=== PATIENT | female | born 1950 | race Caucasian/White ===

== ENCOUNTER 2017-02-15 16:18 | Outpatient (CLI) | payer MEDICARE, BC ==
[2017-02-15 18:22] LABS: #Eosinphils 0.2 thou/uL (0.0-0.7); #Lymphocytes 1.4 thou/uL (1.20-3.40); #Monocytes 0.5 thou/uL (0.11-0.59); #Neutrophils 5.1 thou/uL (1.40-6.50); %Basophils 0.4 % (0.0-1.0); %Eosinophils 2.9 % (0.0-10.0); %Lymphocytes 19.7 % (21.0-51.0); %Monocytes 6.4 % (0.0-10.0); Hematocrit 37.3 % (36.0-47.0); Red Blood Cell (RBC) Count 3.97 mill/uL (4.20-5.40); White Blood Cell (WBC) Count 7.3 thou/uL (4.8-10.8)
[2017-02-15 18:46] LABS: ALT (SGPT) 16 U/L (8-55); AST (SGOT) 15 U/L (5-34); Alkaline Phosphatase 54 U/L (40-150); Anion Gap 11 mmol/L (10-20); BUN (Urea Nitrogen) 22 mg/dL (9.8-20.1); Bilirubin, Total 0.2 mg/dL (0.2-1.2); Calc. Creatinine Clearance 0 mL/min (70-130); Calcium 9.6 mg/dL (7.8-10.44); Carbon Dioxide 25 mmol/L (23-31); Chloride 105 mmol/L (98-107); Estimated GFR-MDRD 72; Globulin 3.3 g/dL (2.4-3.5); Protein, Total 7.4 g/dL (6.0-8.3)
== END 2017-02-15 16:19 | disposition home or self-care (01) ==
LOC: LABBT 16:18
PROVIDERS: ATTEND Surgery
DX: Z01.812 Encounter for preprocedural laboratory examination (principal); K80.80 Other cholelithiasis without obstruction
CPT/HCPCS: 80053; 85025

== ENCOUNTER 2017-02-17 11:46 | Day surgery (SDC) | payer MEDICARE, BC ==
[2017-02-15 16:31] VITALS: BMI 34.5
[2017-02-17] MEDS ORDERED: Midazolam HCl 2 mg/2 ml Vial ONE (13:01)
[2017-02-17] MEDS ORDERED: Fentanyl 250 MCG/5 ML VIAL ONE (13:01)
[2017-02-17] MEDS ORDERED: Bupivacaine/Epinephrine 0.25% 30 ML VIAL ONE (13:02)
[2017-02-17] MEDS ORDERED: CEFAZOLIN/Water 2 GM/20 ML SYRINGE ONE (13:09)
[2017-02-17] MEDS ORDERED: Ondansetron HCl/PF 4 MG/2 ML Vial ONE (14:51)
[2017-02-17] MEDS ORDERED: Fentanyl 100 MCG/2 ML VIAL ONE (14:59)
--- NOTE | 2017-02-17 15:38 | PDOC.OP ---
Operative Note - Operative Note Operative Note: PROCEDURE: Laparoscopic cholecystectomy SURGEON: Elvia Dale M.D. DATE OF PROCEDURE: 02/17/2017 PREOPERATIVE DIAGNOSIS: Cholelithiasis and cholecystitis POSTOPERATIVE DIAGNOSIS: Cholelithiasis and cholecystitis HISTORY: Patient with gallstones and chronic cholecystitis. Laparoscopic cholecystectomy was recommended for symptomatically relief. Preoperative LFTs were normal. FINDINGS: White walled chronically distended gallbladder with chronic-appearing omental and duodenal adhesions. PROCEDURE IN DETAIL: After informed consent was obtained and appropriate preoperative antibiotics were administered, the patient was taken to the operating room and placed in the supine position and general endotracheal anesthesia was administered. The stomach was decompressed with an OG tube and the abdomen was prepped and draped in standard sterile fashion. Local anesthesia was infused to the skin and subcutaneous tissues at the umbilical level. A transverse skin incision was made. The fascia was elevated and a Veress needle was placed into the abdominal cavity without difficulty. Opening pressure was less than 5 and carbon dioxide gas easily insufflated to an intra- abdominal pressure of 15, which the patient tolerated well. The Veress needle was withdrawn and a Pierz port advanced under direct vision. The abdominal cavity was carefully examined. There was no evidence of Veress needle or of trocar injury. Local anesthesia was infused to the skin and subcutaneous tissues at the epigastric, right upper quadrant, and right lateral abdominal sites and trocars were placed under direct vision of the laparoscope. The fundus of the gallbladder was grasped and retracted superiorly. There are multiple adhesions to the omentum and to the duodenum which were carefully taken down through their avascular plane. There was no electrocautery used in the vicinity of the duodenum. The infundibulum was grasped and retracted laterally. The serosa was stripped inferiorly at the level of the neck of the gallbladder exposing the cystic duct and artery which were traced clearly to their insertion in the gallbladder. Critical view of safety was obtained and the cystic duct and artery were clipped and divided between clips. The gallbladder was then dissected free of the gallbladder bed using hook electrocautery. Prior to complete removal of the gallbladder from the gallbladder bed, the area of the cystic duct and artery stumps was examined. The clips were in good position completely across these structures and there was no bleeding and no leakage of bile. The gallbladder was then placed into an EndoCatch bag and drawn out through the epigastric incision after crushing and removing multiple stones. The epigastric trocar was replaced and the operative site easily irrigated to clear. There was no significant bleeding or spillage of bile. The epigastric trocar was removed and the fascia closed under direct laparoscopic vision with a 0 Vicryl suture on a GraNee needle in a figure-of- eight manner with excellent technical result. The right upper quadrant and right lateral abdominal trocars were removed and hemostasis verified. Carbon dioxide gas was allowed to desufflate through the umbilical trocar which was then removed. The skin incisions were closed with 4-0 subcuticular Monocryl sutures and Dermabond dressings were placed. The patient was extubated and taken to the recovery room in good condition. There were no complications. ESTIMATED BLOOD LOSS: Minimal. SPECIMEN : Gallbladder and contents.
[2017-02-17] MEDS ORDERED: Metoclopramide HCl 10 MG/2 ML VIAL ONE (15:49)
[2017-02-17] MEDS ORDERED: Glycopyrrolate 0.2 MG/ML 5 ML SYRINGE ONE (16:11)
[2017-02-17] MEDS ORDERED: Propofol 200 MG/20 ML VIAL ONE (16:11)
[2017-02-17] MEDS ORDERED: PHENYLEPHRINE-NS 100 MCG/ML 10 ML SYRINGE ONE (16:11)
[2017-02-17] MEDS ORDERED: Lidocaine 1% PF 5 ML VIAL ONE (16:11)
[2017-02-17] MEDS ORDERED: ePHEDrine/0.9% NaCl/PF SYRINGE 50 mg/10 ml ONE (16:11)
[2017-02-17] MEDS ORDERED: Dexamethasone 20 MG/5 ML VIAL ONE (16:11)
== END 2017-02-17 17:32 | disposition home or self-care (01) ==
LOC: SDC 11:46
PROVIDERS: ATTEND Surgery
PROC: 0FT44ZZ Resection of Gallbladder, Percutaneous Endoscopic Approach (ICD-10-PCS; principal; 2017-02-17)
DX: K80.10 Calculus of gallbladder with chronic cholecystitis without obstruction (principal); E11.9 Type 2 diabetes mellitus without complications; E07.9 Disorder of thyroid, unspecified; I10 Essential (primary) hypertension; E78.2 Mixed hyperlipidemia; Z88.2 Allergy status to sulfonamides; Z79.82 Long term (current) use of aspirin; Z79.84 Long term (current) use of oral hypoglycemic drugs; Z79.899 Other long term (current) drug therapy
CPT/HCPCS: 88304; 96374; J1100; J2001; J2250; J2405; J2704; J2765; J3010

== ENCOUNTER 2017-06-21 11:24 | Outpatient (CLI) | payer MEDICARE, BC | END 2017-06-21 11:25 | disposition home or self-care (01) | LOC: BICMAMMO 11:24 | PROVIDERS: ATTEND Family Medicine | DX: Z12.31 Encounter for screening mammogram for malignant neoplasm of breast (principal) | CPT/HCPCS: 77063; 77067 ==

== ENCOUNTER 2018-02-13 09:54 | Outpatient (CLI) | payer MEDICARE, BC ==
--- NOTE | 2018-02-13 12:43 | MRI ---
MRI LUMBAR SPINE WITHOUT CONTRAST: HISTORY: Low back pain. Pain radiates down both legs. COMPARISON: 09/15/2014 FINDINGS: Appropriate T1 marrow signal intensity of the lumbar vertebrae. Lumbar spine vertebral body height i s maintained. No fracture. 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 No s ignificant STIR hyperintensity to suggest edema from fracture. No MR evidence of ligamentous injury. Symmetric signal intensity of the psoas muscles. Appropriate signal intensity of the visualized arthur d organs. The conus medullaris terminates at the superior aspect of L1. T12-L1: Adequate disk hydration. No significant central canal stenosis. The neural foramina are pa tent. L1-L2: Adequate disk hydration. No significant central canal stenosis. The neural foramina are pat ent. L2-L3: Adequate disk hydration. No significant central canal stenosis. The neural foramina are pat ent. L3-L4: Adequate disk hydration. No significant central canal stenosis. The neural foramina are pat ent. L4-L5: Adequate disk hydration. No significant central canal stenosis. Mild ligamentum flavum thic kening and moderate facet hypertrophy. The neural foramina are patent bilaterally. L5-S1: Adequate disk hydration. No significant central canal stenosis. There is moderate bilateral facet hypertrophy. The neural foramina are patent. IMPRESSION: Posterior element hypertrophy, as described above. There is no significant central canal stenosis or neural foraminal narrowing. POS: [facility]
== END 2018-02-13 09:55 | disposition home or self-care (01) ==
LOC: SCSMRI 09:54
PROVIDERS: ATTEND Family Medicine
DX: M54.9 Dorsalgia, unspecified (principal); M53.9 Dorsopathy, unspecified; G95.9 Disease of spinal cord, unspecified
CPT/HCPCS: 72148

== ENCOUNTER 2018-10-02 11:47 | Outpatient (CLI) | payer MEDICARE, BC ==
--- NOTE | 2018-10-02 12:46 | MMO ---
Bilateral MAMMO Bilat Screen [facility]. CLINICAL HISTORY: Patient is 67 years old and is seen for screening. The patient has no family history of breast cancer. The patient has no personal history of cancer. The patient has a history of left Excisional Biopsy in 1978 - benign. VIEWS: The views performed were: bilateral craniocaudal with tomosynthesis and bilateral mediolateral oblique with tomosynthesis. FILMS COMPARED: The present examination has been compared to prior imaging studies performed at [facility] on 05/19/2016 and 06/21/2017, and at [facility] on 11/11/2009 and 10/25/2013. MAMMOGRAM FINDINGS: There are scattered fibroglandular densities. Finding 1: There are stable vascular calcifications seen in both breasts. There are no suspicious masses, calcifications or areas of architectural distortion. Finding 2: There is a stable focal asymmetry seen in the left breast. There are no suspicious masses, suspicious calcifications, or new areas of architectural distortion. IMPRESSION: THERE IS NO MAMMOGRAPHIC EVIDENCE OF MALIGNANCY. A ROUTINE FOLLOW-UP MAMMOGRAM IN 1 YEAR IS RECOMMENDED. THE RESULTS OF THIS EXAM WERE SENT TO THE PATIENT. ACR BI-RADS Category 2 - Benign finding MAMMOGRAPHY NOTE: 1. A negative mammogram report should not delay a biopsy if a dominant of clinically suspicious mass is present. 2. Approximately 10% to 15% of breast cancers are not detected by mammography. 3. Adenosis and dense breasts may obscure an underlying neoplasm. Reported by: ASHLEIGH STEVENSON MD Electonically Signed: [id number]
== END 2018-10-02 11:48 | disposition home or self-care (01) ==
LOC: BICMAMMO 11:47
PROVIDERS: ATTEND Family Medicine
DX: Z12.31 Encounter for screening mammogram for malignant neoplasm of breast (principal); Z91.89 Other specified personal risk factors, not elsewhere classified
CPT/HCPCS: 77063; 77067

== ENCOUNTER 2019-11-12 10:23 | Outpatient (CLI) | payer MEDICARE, BC ==
--- NOTE | 2019-11-12 11:35 | BD ---
EXAM: DEXA bone density examination HISTORY: 69-year-old postmenopausal female for screening COMPARISON: 09/15/2014 FINDINGS: L1--bone mineral density 0.816 g/sq cm; T score -1.6 L2--bone mineral density 0.871 g/sq cm; T score -1.4 L3--bone mineral density 0.976 g/sq cm; T score -1.0 L4--bone mineral density 0.881 g/sq cm; T score -1.6 Total L1-L4--bone mineral density 0.887 g/sq cm; T score -1.5 Left femoral neck--bone mineral density0.690; T score -1.4 Total proximal left femur--bone mineral density 0.952; T score 0.1 IMPRESSION: Osteopenia. This patient has a 10 year WHO fracture risk of a major osteoporotic fracture of 8.8% and of a hip fracture of 1.1%.
--- NOTE | 2019-11-12 12:19 | MMO ---
Bilateral MAMMO Bilat Screen [facility]. CLINICAL HISTORY: Patient is 69 years old and is seen for screening. The patient has no family history of breast cancer. The patient has no personal history of cancer. The patient has a history of left Excisional Biopsy in 1978 - benign. VIEWS: The views performed were: bilateral craniocaudal with tomosynthesis and bilateral mediolateral oblique with tomosynthesis. FILMS COMPARED: The present examination has been compared to prior imaging studies performed at [facility] on 05/19/2016, 06/21/2017 and 10/02/2018, and at [facility] on 10/25/2013. This study has been interpreted with the assistance of computer-aided detection. MAMMOGRAM FINDINGS: There are scattered fibroglandular densities. Finding 1: There are stable benign appearing calcifications seen in both breasts. Finding 2: There are stable benign appearing densities seen in both breasts. There are no suspicious masses, suspicious calcifications, or new areas of architectural distortion. IMPRESSION: THERE IS NO MAMMOGRAPHIC EVIDENCE OF MALIGNANCY. A ROUTINE FOLLOW-UP MAMMOGRAM IN 1 YEAR IS RECOMMENDED. THE RESULTS OF THIS EXAM WERE SENT TO THE PATIENT. ACR BI-RADS Category 2 - Benign finding MAMMOGRAPHY NOTE: 1. A negative mammogram report should not delay a biopsy if a dominant of clinically suspicious mass is present. 2. Approximately 10% to 15% of breast cancers are not detected by mammography. 3. Adenosis and dense breasts may obscure an underlying neoplasm. Reported by: RAMON NGUYEN MD Electonically Signed: [id number]
== END 2019-11-12 10:24 | disposition home or self-care (01) ==
LOC: BICMAMMO 10:23
PROVIDERS: ATTEND Family Medicine
DX: Z12.31 Encounter for screening mammogram for malignant neoplasm of breast (principal); M81.6 Localized osteoporosis [Lequesne]; M85.89 Other specified disorders of bone density and structure, multiple sites; Z91.89 Other specified personal risk factors, not elsewhere classified
CPT/HCPCS: 77063; 77067; 77080

== ENCOUNTER 2020-08-02 07:57 | Inpatient (IN) | payer MEDICARE, BC ==
[2020-08-02 10:21] VITALS: BMI 35.6
[2020-08-02] MEDS ORDERED: Ondansetron ODT 4 MG TAB PO PRN (13:27)
[2020-08-02] MEDS ORDERED: Ondansetron PF 4 MG/2 ML Vial IVP PRN (13:27)
[2020-08-02] MEDS ORDERED: Dextrose 50% Abboject 50 ML SYRINGE SLOW IVP PRN (13:27)
[2020-08-02] MEDS ORDERED: hydrALAZINE 20 MG/ML VIAL SLOW IVP PRN (13:27)
[2020-08-02] MEDS ORDERED: traMADol HCl 50 MG TAB PO PRN ×2 (13:27)
[2020-08-02] MEDS ORDERED: Dextrose 5% in Water 1,000 ML IV PRN (13:27)
[2020-08-02] MEDS ORDERED: HumaLOG 300 UNITS/3 ML VIAL SC PRN ×2 (13:27)
[2020-08-02] MEDS ORDERED: Ketorolac Tromethamine 30 MG/ML VIAL IVP SCH (13:30)
[2020-08-02] MEDS: Ibuprofen 800 MG TAB PO SCH ×2 (13:48→23:00)
[2020-08-02] MEDS: Acetaminophen 325 MG TAB PO SCH ×2 (17:07→23:00)
[2020-08-02] MEDS: Famotidine 20 MG TAB PO SCH (20:35)
[2020-08-02] MEDS: Cyclobenzaprine 10 MG TAB PO PRN (20:35)
[2020-08-02 20:39] LABS: SARS-CoV-2 PCR by NAA Not Detected (NotDetected)
[2020-08-02] MEDS: Sodium Chloride 0.9% 1,000 ML IV SCH (23:01)
[2020-08-03] MEDS: Ibuprofen 800 MG TAB PO SCH ×2 (05:08→15:15)
[2020-08-03] MEDS: Acetaminophen 325 MG TAB PO SCH ×4 (05:09→23:59)
[2020-08-03 05:18] LABS: #Eosinphils 0.2 thou/uL (0.0-0.7); #Lymphocytes 1.1 thou/uL (1.20-3.40); #Monocytes 0.5 thou/uL (0.11-0.59); #Neutrophils 3.4 thou/uL (1.40-6.50); %Basophils 0.4 % (0.0-1.0); %Eosinophils 3.9 % (0.0-10.0); %Lymphocytes 21.2 % (21.0-51.0); %Monocytes 9.8 % (0.0-10.0); %Neutrophils 64.7 % (42.0-75.0); Mean Corpuscular HGB CONC 34.3 g/dL (32.0-36.0); Mean Corpuscular Volume 87.7 fL (78.0-98.0); Mean Platelet Volume 7.8 fL (7.4-10.4); Platelet Count 181 thou/uL (130-400); RBC Distribution Width 12.4 % (11.5-14.5); Red Blood Cell (RBC) Count 3.66 mill/uL (4.20-5.40); White Blood Cell (WBC) Count 5.3 thou/uL (4.8-10.8)
[2020-08-03 05:35] LABS: Anion Gap 9 mmol/L (10-20); BUN (Urea Nitrogen) 21 mg/dL (9.8-20.1); Calc. Creatinine Clearance 90 mL/min (70-130); Calcium 8.9 mg/dL (7.8-10.44); Carbon Dioxide 27 mmol/L (23-31); Chloride 106 mmol/L (98-107); Glucose 103 mg/dL (80-115); Potassium 3.9 mmol/L (3.5-5.1); Sodium 138 mmol/L (136-145)
[2020-08-03] MEDS: Famotidine 20 MG TAB PO SCH ×2 (07:24→20:10)
[2020-08-03] MEDS ORDERED: CEFAZOLIN 2 GM in Premix Bag 1 BAG IVPB SCH (12:30)
[2020-08-03] MEDS: Sodium Chloride 0.9% 1,000 ML IV SCH ×2 (12:42→17:30)
[2020-08-03] MEDS ORDERED: Midazolam HCl 2 mg/2 ml Vial ONE (13:21)
[2020-08-03] MEDS ORDERED: Fentanyl 100 MCG/2 ML VIAL ONE ×4 (13:21→15:34)
[2020-08-03] MEDS ORDERED: Famotidine/PF 20 mg/2ml Vial ONE (13:49)
[2020-08-03] MEDS ORDERED: PROPOFOL 200 MG/20 ML VIAL ONE (13:57)
[2020-08-03] MEDS ORDERED: Ropivacaine 0.5% HCl/PF (150 MG/30 ML VIAL) ONE (13:57)
[2020-08-03] MEDS ORDERED: Lidocaine 1% PF 5 ML VIAL ONE (13:57)
[2020-08-03] MEDS ORDERED: Ropivacaine 2% HCl/PF (20 MG/10 ML VIAL) ONE (13:57)
[2020-08-03] MEDS ORDERED: Ondansetron PF 4 MG/2 ML Vial ONE (13:57)
[2020-08-03] MEDS ORDERED: ePHEDrine Sulfate 50 MG/10 ML VIAL ONE (13:57)
[2020-08-03] MEDS ORDERED: Fentanyl 100 MCG/2 ML VIAL IV PRN (14:19)
[2020-08-03] MEDS ORDERED: HYDROcodone/Acetaminophen 10/325 mg Tablet PO PRN ×2 (14:30)
[2020-08-03] MEDS ORDERED: Ondansetron PF 4 MG/2 ML Vial IVP PRN (14:30)
[2020-08-03] MEDS ORDERED: Ropivacaine 0.2% 550 ML 550 ML NERVE BLCK SCH (14:30)
[2020-08-03] MEDS ORDERED: Zolpidem Tartrate 5 MG TAB PO PRN (14:30)
[2020-08-03] MEDS ORDERED: Promethazine HCl 25 MG/ML VIAL IM PRN ×2 (14:30→15:16)
[2020-08-03] MEDS ORDERED: traMADol HCl 50 MG TAB PO PRN ×2 (14:30)
[2020-08-03] MEDS ORDERED: Promethazine HCl 25 MG/ML VIAL SLOW IVP PRN (15:16)
[2020-08-03] MEDS ORDERED: Ondansetron HCl/PF 4 MG/2 ML Vial IVP PRN (15:16)
[2020-08-03] MEDS ORDERED: Bupivacaine 0.5% 10 ML VIAL ONE ×2 (15:43→15:45)
[2020-08-03] MEDS: CEFAZOLIN 2 GM in Premix Bag 1 BAG IVPB SCH (20:10)
[2020-08-03] MEDS ORDERED: Meclizine HCl 25 MG TAB PO PRN (23:48)
[2020-08-03] MEDS ORDERED: Carbamide Peroxide 6.5% Otic Drops 15 ml Bottle EA EAR SCH (23:59)
[2020-08-04] MEDS: Sodium Chloride 0.9% 1,000 ML IV SCH (02:15)
[2020-08-04] MEDS: Ibuprofen 800 MG TAB PO SCH ×4 (02:15→21:26)
[2020-08-04] MEDS: CEFAZOLIN 2 GM in Premix Bag 1 BAG IVPB SCH (05:31)
[2020-08-04] MEDS: Acetaminophen 325 MG TAB PO SCH ×3 (05:31→17:50)
[2020-08-04] MEDS: Famotidine 20 MG TAB PO SCH ×2 (09:23→21:26)
[2020-08-04] MEDS: Enoxaparin Sodium 40 MG/0.4 ML SYRINGE SC SCH (09:24)
[2020-08-04] MEDS: Carbamide Peroxide 6.5% Otic Drops 15 ml Bottle EA EAR SCH ×2 (09:24→21:35)
[2020-08-04] MEDS: Cyclobenzaprine 10 MG TAB PO PRN (14:45)
[2020-08-04] MEDS: Senokot S 8.6-50 MG TAB PER TUBE SCH (21:26)
[2020-08-05] MEDS: Acetaminophen 325 MG TAB PO SCH ×2 (00:30→06:33)
[2020-08-05] MEDS: Cyclobenzaprine 10 MG TAB PO PRN (00:30)
[2020-08-05] MEDS: Ibuprofen 800 MG TAB PO SCH (06:33)
[2020-08-05 07:50] VITALS: TEMP 97.4
[2020-08-05] MEDS ORDERED: Losartan 25 MG TAB PO SCH (09:00)
[2020-08-05] MEDS ORDERED: Carvedilol 3.125 MG TAB PO SCH (09:00)
[2020-08-05] MEDS ORDERED: buPROPion HCl 100 MG TAB PO SCH (09:00)
[2020-08-05] MEDS ORDERED: Spironolactone 25 MG TAB PO SCH (09:00)
[2020-08-05] MEDS: Enoxaparin Sodium 40 MG/0.4 ML SYRINGE SC SCH (09:10)
[2020-08-05] MEDS: Senokot S 8.6-50 MG TAB PER TUBE SCH (09:10)
[2020-08-05] MEDS: Famotidine 20 MG TAB PO SCH (09:10)
[2020-08-05] MEDS: Carbamide Peroxide 6.5% Otic Drops 15 ml Bottle EA EAR SCH (09:10)
[2020-08-05 11:24] VITALS: BP 151/70
== END 2020-08-05 11:45 | disposition swing bed (61) | DRG 494 ==
LOC: SURG A 07:57
PROVIDERS: ADMIT Surgery; ATTEND Surgery
PROC: 0QSJ04Z Reposition Right Fibula with Internal Fixation Device, Open Approach (ICD-10-PCS; principal; 2020-08-03)
PROC: 0QSG04Z Reposition Right Tibia with Internal Fixation Device, Open Approach (ICD-10-PCS; 2020-08-03)
DX: S82.851A Displaced trimalleolar fracture of right lower leg, initial encounter for closed fracture (principal); G25.81 Restless legs syndrome; K21.9 Gastro-esophageal reflux disease without esophagitis; E11.42 Type 2 diabetes mellitus with diabetic polyneuropathy; M19.90 Unspecified osteoarthritis, unspecified site; E03.9 Hypothyroidism, unspecified; I10 Essential (primary) hypertension; Z20.822 Contact with and (suspected) exposure to COVID-19; F32.9 Major depressive disorder, single episode, unspecified; W01.0XXA Fall on same level from slipping, tripping and stumbling without subsequent striking against object, initial encounter; Z88.0 Allergy status to penicillin; Z86.73 Personal history of transient ischemic attack (TIA), and cerebral infarction without residual deficits; Z90.49 Acquired absence of other specified parts of digestive tract
CPT/HCPCS: 36415; 36416; 76000; 80048; 85025; 87635; A4306; C1713; J0690; J1650; J1815; J1885; J2250; J2405; J2704; J2795; J3010; J3490; S0028; U0003; U0005

== ENCOUNTER 2020-12-03 10:27 | Outpatient (CLI) | payer MEDICARE, BC ==
[2020-12-03 11:24] LABS: Hemoglobin 12.1 g/dL (12.0-15.5); Mean Corpuscular HGB CONC 32.1 g/dL (32.0-36.0); Mean Corpuscular Hemoglobin 27.7 pg (27.0-33.0); Mean Corpuscular Volume 86.3 fl (81.6-98.3); Platelet Count 208 10x3/uL (150-450); RBC Distribution Width 12.3 % (11.5-14.5); Red Blood Cell (RBC) Count 4.37 10x6/uL (3.90-5.03); White Blood Cell (WBC) Count 10.7 10x3/uL (3.5-10.5)
[2020-12-03 11:54] LABS: Anion Gap 15 mmol/L (10-20); BUN (Urea Nitrogen) 22 mg/dL (9.8-20.1); Calc. Creatinine Clearance 0 mL/min (70-130); Calcium 9.5 mg/dL (7.8-10.44); Carbon Dioxide 22 mmol/L (23-31); Chloride 108 mmol/L (98-107); Glucose 89 mg/dL (83-110); Potassium 4.6 mmol/L (3.5-5.1); Sodium 140 mmol/L (136-145)
[2020-12-04 00:24] LABS: SARS-CoV-2 PCR by NAA Not Detected (NotDetected)
== END 2020-12-03 10:28 | disposition home or self-care (01) ==
LOC: LABBT 10:27
PROVIDERS: ATTEND Orthopaedic Surgery
DX: Z01.812 Encounter for preprocedural laboratory examination (principal); T85.848A Pain due to other internal prosthetic devices, implants and grafts, initial encounter; Z20.822 Contact with and (suspected) exposure to COVID-19
CPT/HCPCS: 80048; 85027; U0003; U0005

== ENCOUNTER 2021-09-29 11:33 | Outpatient (CLI) | payer MEDICARE, BC | END 2021-09-29 11:34 | disposition home or self-care (01) | LOC: LABBT 11:33 | PROVIDERS: ATTEND Orthopaedic Surgery | DX: Z01.818 Encounter for other preprocedural examination (principal); T85.848A Pain due to other internal prosthetic devices, implants and grafts, initial encounter; Z20.822 Contact with and (suspected) exposure to COVID-19 | CPT/HCPCS: 87811; 93005; 93010 ==

== ENCOUNTER 2021-10-04 10:28 | Day surgery (SDC) | payer MEDICARE, BC ==
[2021-09-30 10:21] VITALS: BMI 34.5
[2021-10-04] MEDS ORDERED: fentaNYL Citrate/PF 100 MCG/2 ML SYRINGE ONE ×2 (12:05→13:23)
[2021-10-04] MEDS ORDERED: CEFAZOLIN 2 GM VIAL ONE (12:09)
[2021-10-04] MEDS ORDERED: Sodium Chloride 0.9% 100 ML ONE (12:09)
[2021-10-04] MEDS ORDERED: ePHEDrine 50 MG/ML VIAL ONE (12:24)
[2021-10-04] MEDS ORDERED: Ketorolac Tromethamine 30 MG/ML VIAL ONE (12:24)
[2021-10-04] MEDS ORDERED: PROPOFOL 200 MG/20 ML VIAL ONE (12:24)
[2021-10-04] MEDS ORDERED: Ondansetron PF 4 MG/2 ML Vial ONE ×2 (12:24→13:34)
[2021-10-04] MEDS ORDERED: Dexamethasone 20 MG/5 ML VIAL ONE (12:24)
[2021-10-04] MEDS ORDERED: Bupivacaine PF 0.5% 30 ML VIAL ONE (12:58)
[2021-10-04] MEDS ORDERED: Dexamethasone 4 mg/ml Vial ONE (13:23)
[2021-10-04] MEDS ORDERED: Fentanyl 100 MCG/2 ML VIAL ONE ×2 (13:43→14:08)
== END 2021-10-04 15:25 | disposition home or self-care (01) ==
LOC: SDC 10:28
PROVIDERS: ATTEND Orthopaedic Surgery
PROC: 0SPF04Z Removal of Internal Fixation Device from Right Ankle Joint, Open Approach (ICD-10-PCS; principal; 2021-10-04)
DX: T84.84XA Pain due to internal orthopedic prosthetic devices, implants and grafts, initial encounter (principal); E11.9 Type 2 diabetes mellitus without complications; E07.9 Disorder of thyroid, unspecified; E78.2 Mixed hyperlipidemia; Z85.72 Personal history of non-Hodgkin lymphomas; Z86.73 Personal history of transient ischemic attack (TIA), and cerebral infarction without residual deficits; Z79.84 Long term (current) use of oral hypoglycemic drugs; Z79.890 Hormone replacement therapy; Z79.899 Other long term (current) drug therapy; Z88.2 Allergy status to sulfonamides
CPT/HCPCS: 76000; J0690; J1100; J1885; J2405; J2704; J3010; J3490; S0020

== ENCOUNTER 2023-09-06 12:39 | Outpatient (CLI) | payer MEDICARE | END 2023-09-06 12:40 | disposition home or self-care (01) | LOC: BICMAMMO 12:39 | PROVIDERS: ATTEND Family Medicine | DX: Z12.31 Encounter for screening mammogram for malignant neoplasm of breast (principal); Z85.72 Personal history of non-Hodgkin lymphomas; Z91.89 Other specified personal risk factors, not elsewhere classified | CPT/HCPCS: 77063; 77067 ==

== ENCOUNTER 2024-04-21 05:22 | Observation (INO) | payer MEDICARE ==
[2024-04-21 06:08] LABS: #Basophils Less than 0.03 10x3/uL (0.0-0.2); %Basophils 0.4 % (0.0-1.0); %Eosinophils 5.1 % (0.0-10.0); %Lymphocytes 24.2 % (21.0-51.0); %Monocytes 7.4 % (0.0-10.0); %Neutrophils 62.5 % (42.0-75.0); Hematocrit 35.5 % (36.0-47.0); Hemoglobin 11.5 g/dL (12.0-16.0); Mean Corpuscular HGB CONC 32.4 g/dL (32.0-36.0); Mean Corpuscular Hemoglobin 28.4 pg (27.0-31.0); Mean Corpuscular Volume 87.7 fL (78.0-98.0); Mean Platelet Volume 10.2 fL (7.4-10.4); Platelet Count 187 10x3/uL (130-400); RBC Distribution Width 12.8 % (11.5-14.5); Red Blood Cell (RBC) Count 4.05 mill/uL (4.20-5.40)
[2024-04-21 06:29] LABS: ALT (SGPT) 16 U/L (Less than 34); AST (SGOT) 23 U/L (11-34); Albumin 3.5 g/dL (3.1-4.5); Alkaline Phosphatase 46 U/L (40-110); Anion Gap 13 mmol/L (10-20); BUN (Urea Nitrogen) 15 mg/dL (9.8-20.1); Bilirubin, Total 0.3 mg/dL (0.3-1.2); Calc. Creatinine Clearance 0 mL/min (70-130); Calcium 8.7 mg/dL (7.8-10.44); Carbon Dioxide 26 mmol/L (23-31); Chloride 107 mmol/L (98-107); Estimated GFR 80; Globulin 3.6 g/dL (2.4-3.5); Glucose 96 mg/dL (83-110); Potassium 4.1 mmol/L (3.5-5.1); Protein, Total 7.1 g/dL (5.8-8.1); Sodium 142 mmol/L (136-145)
[2024-04-21 06:33] LABS: Troponin I 0.014 ng/mL (< 0.028)
[2024-04-21] MEDS ORDERED: Senokot S 8.6-50 MG TAB PO PRN (08:58)
[2024-04-21] MEDS ORDERED: Insulin Lispro 100 UNIT/ML 10 ML VIAL SC PRN ×2 (08:58)
[2024-04-21] MEDS ORDERED: Glucagon 1 MG/ML KIT IM PRN (08:58)
[2024-04-21] MEDS ORDERED: Nitroglycerin 0.4 MG TAB (25 Tab Bottle) SL PRN (08:58)
[2024-04-21] MEDS ORDERED: Calcium Carbonate 500 MG ChewTAB PO PRN (08:58)
[2024-04-21] MEDS ORDERED: Acetaminophen 650 MG Suppository PR PRN (08:58)
[2024-04-21] MEDS ORDERED: Acetaminophen 325 MG TAB PO PRN (08:58)
[2024-04-21] MEDS ORDERED: Dextrose 50% Abboject 50 ML SYRINGE SLOW IVP PRN (08:58)
[2024-04-21] MEDS ORDERED: Ondansetron ODT 4 MG TAB PO PRN (08:58)
[2024-04-21] MEDS ORDERED: Dextrose 5% in Water 1,000 ML IV PRN (08:58)
[2024-04-21 10:00] VITALS: BMI 37.5
[2024-04-21 10:22] LABS: Magnesium 2.2 mg/dL (1.6-2.6)
[2024-04-21 10:35] LABS: Troponin I 0.021 ng/mL (< 0.028)
[2024-04-21] MEDS: Enoxaparin 40 MG (0.4 mL) SYRINGE SC SCH (11:48)
[2024-04-21] MEDS: Aspirin Chewable 81 MG TAB PO SCH (11:49)
[2024-04-21 15:12] LABS: Troponin I Less than 0.010 ng/mL (< 0.028)
[2024-04-21] MEDS: Losartan 25 MG TAB PO SCH (18:17)
[2024-04-21] MEDS: Atorvastatin Calcium 40 MG TAB PO SCH (20:40)
[2024-04-21] MEDS: Carvedilol 3.125 MG TAB PO SCH (20:40)
[2024-04-22] MEDS: Levothyroxine Sodium 125 MCG TAB PO SCH (05:59)
[2024-04-22 07:11] LABS: #Basophils 0.03 10x3/uL (0.0-0.2); %Basophils 0.6 % (0.0-1.0); %Eosinophils 5.4 % (0.0-10.0); %Monocytes 7.5 % (0.0-10.0); %Neutrophils 63.1 % (42.0-75.0); Hematocrit 35.7 % (36.0-47.0); Hemoglobin 11.4 g/dL (12.0-16.0); Mean Corpuscular HGB CONC 31.9 g/dL (32.0-36.0); Mean Corpuscular Hemoglobin 27.9 pg (27.0-31.0); Mean Corpuscular Volume 87.3 fL (78.0-98.0); Mean Platelet Volume 10.1 fL (7.4-10.4); Platelet Count 177 10x3/uL (130-400); RBC Distribution Width 12.8 % (11.5-14.5); Red Blood Cell (RBC) Count 4.09 mill/uL (4.20-5.40)
[2024-04-22 07:38] LABS: Anion Gap 14 mmol/L (10-20); BUN (Urea Nitrogen) 15 mg/dL (9.8-20.1); Calc. Creatinine Clearance 90 mL/min (70-130); Calcium 9.2 mg/dL (7.8-10.44); Carbon Dioxide 25 mmol/L (23-31); Chloride 109 mmol/L (98-107); Estimated GFR 80; Glucose 108 mg/dL (83-110); Sodium 144 mmol/L (136-145)
[2024-04-22] MEDS ORDERED: Regadenoson 0.4 MG/5 ML SYRINGE ONE (08:37)
[2024-04-22 11:02] VITALS: BP 155/86; TEMP 97.9
[2024-04-22] MEDS: Pantoprazole 40 MG DR.TAB PO SCH (11:03)
[2024-04-22] MEDS: Sertraline 100 MG TAB PO SCH (11:03)
[2024-04-22] MEDS: Losartan 25 MG TAB PO SCH (11:03)
[2024-04-22] MEDS: Ondansetron PF 4 MG/2 ML Vial IVP PRN (11:03)
[2024-04-22] MEDS: BuPROPion XL 150 MG ER.TAB PO SCH (11:03)
[2024-04-23] MEDS ORDERED: Spironolactone 25 MG TAB PO SCH (09:00)
== END 2024-04-22 13:05 | disposition home or self-care (01) ==
LOC: ERS 05:22 → OBS 07:41
PROVIDERS: ADMIT Internal Medicine; ATTEND Hospitalist
DX: R07.89 Other chest pain (principal); I10 Essential (primary) hypertension; E11.9 Type 2 diabetes mellitus without complications; E03.9 Hypothyroidism, unspecified; F32.A Depression, unspecified; K21.9 Gastro-esophageal reflux disease without esophagitis; Z86.73 Personal history of transient ischemic attack (TIA), and cerebral infarction without residual deficits; Z85.72 Personal history of non-Hodgkin lymphomas; Z90.49 Acquired absence of other specified parts of digestive tract; Z88.2 Allergy status to sulfonamides; Z79.890 Hormone replacement therapy; Z79.84 Long term (current) use of oral hypoglycemic drugs; Z79.82 Long term (current) use of aspirin; Z79.899 Other long term (current) drug therapy
CPT/HCPCS: 78452; 80048; 82962 ×2; 83735; 84484 ×2; 85025; 93005; 93017; 96372 ×2; 96374; 99285; A9502; G0378 ×3; J1650 ×2; J2405; J2785 ×2; 36415; 36416; 80053; 84443